=== PATIENT | male | born 1990 ===

== ENCOUNTER 2019-03-06 16:17 | Emergency (ER) | payer MEDICAID ==
[~2019-03-06] VITALS: Ht 172.7 cm; Wt 62.0 kg
[2019-03-06 16:26] VITALS: BP 124/84
--- NOTE | 2019-03-06 16:35 | NUR ---
Pt states he is leaving during triage. Took off his bp cuff, threw it down and walked out.
== END 2019-03-06 16:48 | disposition left against medical advice (07) ==
LOC: ER 16:18
DX: Z00.8 Encounter for other general examination (principal); Z53.21 Procedure and treatment not carried out due to patient leaving prior to being seen by health care provider